=== PATIENT | male | born 1965 | race African-American/Black ===

== ENCOUNTER 2022-08-10 14:13 | Emergency (ER) | payer MEDICARE ==
[~2022-08-10] VITALS: Ht 188 cm; Wt 117.9 kg
[2022-08-10] MEDS ORDERED: XYZAL5 MG (14:44)
[2022-08-10] MEDS ORDERED: MELOXICAM15 MG PO (14:55)
[2022-08-10] MEDS ORDERED: GABAPENTIN100 MG PO (14:58)
[2022-08-10 15:12] VITALS: O2SAT 99
== END 2022-08-10 15:12 | disposition home or self-care (01) ==
LOC: FSED 14:17
DX: G57.82 Other specified mononeuropathies of left lower limb (principal); Z79.1 Long term (current) use of non-steroidal anti-inflammatories (NSAID)
CPT/HCPCS: 99283